=== PATIENT | male | born 1995 | race African-American/Black ===

== ENCOUNTER 2017-03-26 13:36 | Emergency (ER) | payer OTHER | END 2017-03-26 17:31 | disposition home or self-care (01) | LOC: M ED 13:36 | DX: G89.29 Other chronic pain (principal); M54.5 Low back pain; I10 Essential (primary) hypertension; S76.211A Strain of adductor muscle, fascia and tendon of right thigh, initial encounter; S76.212A Strain of adductor muscle, fascia and tendon of left thigh, initial encounter; W00.0XXA Fall on same level due to ice and snow, initial encounter; X50.9XXA Other and unspecified overexertion or strenuous movements or postures, initial encounter; Y92.89 Other specified places as the place of occurrence of the external cause | CPT/HCPCS: 72202 ==

== ENCOUNTER → 2019-03-27 | Outpatient (REF) | payer OTHER ==
[~2019-03-27] MED LIST: IBUP80TA PO
== END ==
LOC: M LAB REF 17:51
PROVIDERS: ATTEND Ophthalmology
DX: D22.111 Melanocytic nevi of right upper eyelid, including canthus (principal)